=== PATIENT | female | born 1995 | race African-American/Black ===

== ENCOUNTER 2017-03-22 18:22 | Emergency (ER) | payer OTHER ==
[2017-03-22 18:27] VITALS: BP 119/75; BMI 33.6
[2017-03-22 19:58] LABS: BILIRUBIN,URINE NEGATIVE (NEGATIVE); BLOOD/HEMOGLOBIN,URINE NEGATIVE (NEGATIVE); GLUCOSE, URINE NEGATIVE (NEGATIVE); KETONES,URINE 3+ (NEGATIVE); LEUKOCYTE ESTERASE ,URINE 3+ (NEGATIVE); NITRITES,URINE NEGATIVE (NEGATIVE); PROTEIN,URINE NEGATIVE (NEGATIVE); UROBILINOGEN,URINE 1+ (NORMAL)
--- NOTE | 2017-03-22 20:06 | DR.GENAD ---
HPI - PCP Primary Care Physician: DR. DARLING - HPI Comment HPI Comment: HISTORY BELOW. - Complaint/Symptoms Chief Complaint Doctors Comments: ABDOMINAL PAIN, VAGINAL DISCHARGE. GREENISH AND BLOOD STAIN DISCHARGE. ON AND OFF FOR FEW DAYS. NOT FEELING BABY MOVING TODAY. Chief Complaint:: PATIENT STATED THAT FOR THE LAST COUPLE OF DAY SHE HAS BEEN PASSING GREEN DISCHARGE. THIS IS THE 3RD DAY. PATIENT STATED THAT SHE COULD NOT GO SEE HER DOCTOR TODAY DUE TO SHE HAD TO BE IN COURT AND SHE ALSO DENIES HAVING ANY SEX PARTNERS FOR A LONG TIME. - Nurses notes reviewed Nurses Notes Review: Yes - Source History Provided: Patient - Mode of Arrival Mode of Arrival: Ambulatory - Timing Onset of Chief Complaint: 03/19/17 Came on: Suddenly - Duration Duration: Intermittent Duration: Days - Severity Severity: Moderate PMH - PMH Past Medical History: No Past Surgical History: No - Family History History of Family Medical Conditions: Yes Family Medical History: Diabetes Mellitus, Coronary Artery Disease, Hypertension - Social History Does patient currently use any type of tobacco product: No Have you used tobacco products in the last 12 months: No Type of Tobacco Use: None Does any household member use tobacco: No Alcohol Use: None Do you use any recreational Drugs:: No Lives With: Family Lives Where: Home - infectious screening In the last 2 months have you had wt loss of >10#?: NO Have you had fever, night sweats or hemotysis?: No Have you traveled outside the country in the last 6 months?: No Isolation: Standard ROS - Review of Systems Constitutional: No Symptoms Reported Eyes: No Symptoms Reported ENTM: No Symptoms Reported Respiratoy: No Symptoms Reported Cardiovascular: No Symptoms Reported Gastrointestinal/Abdominal: Abdominal Pain Genitourinary: Discharge, Bleeding (VAGINAL BLEEDING.), Other (VAGINAL BLEEDING) Neurological: No Symptoms Reported Musculoskeletal: No Symptoms Reported Integumentary: No Symptoms Reported Hematologic/Lymphatic: No Symptoms Reported Endocrine: No Symptoms Reported All Other Systems: Reviewed and Negative PE - Vital Signs Vitals: Temperature 97.6 F Pulse Rate 95 Respiratory Rate 20 Blood Pressure 119/75 O2 Sat by Pulse Oximetry 100 - General Limitations: No Limitations General Appearance: Alert - Head Head Exam: Normal Inspection - Eyes Eye exam: Normal Appearance - ENT ENT Exam: Normal External Ear Exam External Ear Exam: Normal External Inspection TM/Canal Exam: Bilateral Normal Nose Exam: Normal Nose Exam Mouth Exam: Normal Inspection Throat Exam: Normal Inspection - Neck Neck Exam: Trachea Midline - Chest Chest Inspection: Symmetric Chest Wall Rise - Respiratory Respiratory Exam: Normal Lung Sounds Bilat Respiratory Exam: Bilateral Clear to Auscultation - Cardiovascular Cardiovascular Exam: Regular Rate, Normal Rhythm, Normal Heart Sounds - Abdominal Exam Abdominal Exam: Normal Bowel Sounds, Soft, Tenderness Abdominal Tenderness: RLQ, LLQ, Suprapubic - Extremities Extremities Exam: Normal Inspection - Back Back Exam: Normal Inspection - Neurologic Neurological Exam: Alert, Oriented X3 - Psychiatric Psychiatric Exam: Normal Affect, Anxious - Skin Skin Exam: Normal Color MDM - Additional Information Additional Information Obtained From: Family - Differential Diagnosis Differential Diagnosis: VAGIAL BLEEDING DURING , UTI, PID, THREATENED MISCARRIAGE. Course - Treatment Treatment: SEE ORDERS - Consultation Consultation Comments: DISCUSS PATIENT WITH DR. GRADY. WILL SEE PATIENT IN HIS OFFICE IN AM. FORWARD POSITIVE CULT REPORT TO HIS OFFICE. - Education/Counseling Education/Counseling: Patient, Family, Education Educated On: Needs for Follow Up ROR - Labs Reviewed Laboratory Results Reviewed?: Yes Result Diagrams: 03/22/17 20:47 03/22/17 20:47 Laboratory: 03/22/17 23:25 Vaginal ZAK Preparation - Final WBC 11.7 X10^3/uL (3.6-10.0) H 03/22/17 20:47 RBC 3.59 X10^6/uL (3.5-5.4) 03/22/17 20:47 Hgb 10.4 g/dL (12.0-16.0) L 03/22/17 20:47 Hct 30.6 % (36.0-47.0) L 03/22/17 20:47 MCV 85.2 fL (80.0-100.0) 03/22/17 20:47 MCH 28.9 pg (27.0-34.0) 03/22/17 20:47 MCHC 33.9 g/dL (33.0-35.0) 03/22/17 20:47 RDW 14.4 % (11.6-16.5) 03/22/17 20:47 Plt Count 179 X10^3/uL (150.0-450.0) 03/22/17 20:47 MPV 10.1 fL (7.4-11.0) 03/22/17 20:47 Neut % 68.4 % (42.0-75.0) 03/22/17 20:47 Lymph % 24.3 % (21.0-51.0) 03/22/17 20:47 Mcduffie % 6.1 % (0.0-13.0) 03/22/17 20:47 Eos % 1.0 % (0.9-2.9) 03/22/17 20:47 Baso % 0.2 % (0.2-1.0) 03/22/17 20:47 Neut # 8.0 x10^3/uL (2.2-4.8) H 03/22/17 20:47 Lymph # 2.9 X10^3/uL (1.3-2.9) 03/22/17 20:47 Mcduffie # 0.7 x10^3/uL (0.3-0.8) 03/22/17 20:47 Eos # 0.1 x10^3/uL (0.0-0.2) 03/22/17 20:47 Baso # 0.0 X10^3/uL (0.0-0.1) 03/22/17 20:47 Absolute Nucleated RBC 0.0 /100WBC 03/22/17 20:47 Sodium 139 mmol/L (136-145) 03/22/17 20:47 Corrected Sodium TNP 03/22/17 20:47 Potassium 3.2 mmol/L (3.5-5.1) L 03/22/17 20:47 Chloride 105 mmol/L (98-107) 03/22/17 20:47 Carbon Dioxide 26.1 mmol/L (21-32) 03/22/17 20:47 BUN 4 mg/dL (7-18) L 03/22/17 20:47 Creatinine 0.47 mg/dL (0.55-1.02) L 03/22/17 20:47 Est GFR (MDRD) Af Amer > 60 (>60) 03/22/17 20:47 Est GFR (MDRD) Non-Af > 60 (>60) 03/22/17 20:47 Glucose 86 mg/dL (65-99) 03/22/17 20:47 Calcium 8.3 mg/dL (8.5-10.1) L 03/22/17 20:47 Corrected Calcium 9.3 mg/dL (8.5-10.1) 03/22/17 20:47 Total Bilirubin 0.10 mg/dL (0.2-1.0) L 03/22/17 20:47 AST 11 Units/L (15-37) L 03/22/17 20:47 ALT 12 Units/L (12-78) 03/22/17 20:47 Alkaline Phosphatase 63 Units/L (46-116) 03/22/17 20:47 Total Protein 6.9 g/dL (6.4-8.2) 03/22/17 20:47 Albumin 2.8 g/dL (3.4-5.0) L 03/22/17 20:47 Globulin 4.1 g/dL (2.5-4.5) 03/22/17 20:47 Albumin/Globulin Ratio 0.7 Ratio (1.1-2.1) L 03/22/17 20:47 HCG, Quant 4973 mIU/mL (0-6) H 03/22/17 20:47 Specimen Type Clean catch urine 03/22/17 19:42 Urine Color Dark yellow (YELLOW) 03/22/17 19:42 Urine Appearance Slightly hazy (CLEAR) 03/22/17 19:42 Urine pH 6.0 (5.0 - 8.0) 03/22/17 19:42 Ur Specific [place] 1.015 (1.000-1.030) 03/22/17 19:42 Urine Protein Negative (NEGATIVE) 03/22/17 19:42 Urine Glucose (UA) Negative (NEGATIVE) 03/22/17 19:42 Urine Ketones 3+ (NEGATIVE) 03/22/17 19:42 Urine Occult Blood Negative (NEGATIVE) 03/22/17 19:42 Urine Nitrite Negative (NEGATIVE) 03/22/17 19:42 Urine Bilirubin Negative (NEGATIVE) 03/22/17 19:42 Urine Urobilinogen 1+ (NORMAL) 03/22/17 19:42 Ur Leukocyte Esterase 3+ (NEGATIVE) 03/22/17 19:42 Urine RBC 0-1 /HPF (NEGATIVE) 03/22/17 19:42 Urine WBC 2-3 /HPF (NEGATIVE) 03/22/17 19:42 Ur Squamous Epith Cells Few /HPF (NEGATIVE) 03/22/17 19:42 Amorphous Sediment Trace /HPF (NEGATIVE) 03/22/17 19:42 Urine Bacteria 1+ /HPF (NEGATIVE) 03/22/17 19:42 Urine Mucus Many /HPF (NEGATIVE) 03/22/17 19:42 Ur Culture Indicated? No/not indicated 03/22/17 19:42 Stool Description Fob tube 03/22/17 21:50 Stl Occult Blood (IFOB) Negative (NEGATIVE) 03/22/17 21:50 Ur C. trach DNA (PCR) Not detected (NOT DETECT) 03/22/17 19:42 U N.gonorrhoeae DNA PCR Not detected (NOT DETECT) 03/22/17 19:42 Blood Type A POSITIVE 03/22/17 20:47 - XRAY XRAY Interpreted by: Radiologist XRAY Findings: REPORT DISCUSS WITH PATIENT. - Diagnosis Discharge Problem: Abdominal pain during in second trimester Vaginal discharge during Qualifiers: Trimester: first trimester Qualified Code(s): O26.891 - Other specified related conditions, first trimester; N89.8 - Other specified noninflammatory disorders of vagina Vaginal bleeding during , antepartum Qualifiers: Trimester: first trimester Qualified Code(s): O46.91 - Antepartum hemorrhage, unspecified, first trimester - Discharge Plan Disposition: 01 HOME, SELF-CARE Condition: Stable - Follow ups/Referrals Follow ups/Referrals: RAMÍREZ DARLING [Primary Care Provider] - 03/23/17 - Instructions Instructions: Abdominal Pain During , [id number], Vaginal Bleeding During , Second Trimester Additional Instructions: SEE DR. GRADY THIS AM.
[2017-03-22 20:26] LABS: AMORPHOUS SEDIMENT,UR TRACE /HPF (NEGATIVE); APPEARANCE,URINE SLIGHTLY HAZY (CLEAR); BACTERIA,URINE 1+ /HPF (NEGATIVE); COLOR,URINE DARK YELLOW (YELLOW); MUCUS,URINE MANY /HPF (NEGATIVE); RBC,URINE 0-1 /HPF (NEGATIVE); SQUAMOUS EPITHELIAL CELL,UR FEW /HPF (NEGATIVE)
[2017-03-22 21:02] LABS: BASOPHILS % (AUTO) 0.2 % (0.2-1.0); EOSINOPHILS # (AUTO) 0.1 x10^3/uL (0.0-0.2); HEMATOCRIT 30.6 % (36.0-47.0); HEMOGLOBIN 10.4 g/dL (12.0-16.0); LYMPHOCYTES # (AUTO) 2.9 X10^3/uL (1.3-2.9); LYMPHOCYTES % (AUTO) 24.3 % (21.0-51.0); MEAN CORPUSCULAR HEMOGLOBIN 28.9 pg (27.0-34.0); MEAN CORPUSCULAR HGB CONC 33.9 g/dL (33.0-35.0); MEAN CORPUSCULAR VOLUME 85.2 fL (80.0-100.0); MEAN PLATELET VOLUME 10.1 fL (7.4-11.0); MONOCYTES # (AUTO) 0.7 x10^3/uL (0.3-0.8); MONOCYTES % (AUTO) 6.1 % (0.0-13.0); NEUTROPHILS % (AUTO) 68.4 % (42.0-75.0); PLATELET COUNT 179 X10^3/uL (150.0-450.0); RED BLOOD COUNT 3.59 X10^6/uL (3.5-5.4); RED CELL DISTRIBUTION WIDTH 14.4 % (11.6-16.5); WHITE BLOOD COUNT 11.7 X10^3/uL (3.6-10.0)
[2017-03-22 21:12] LABS: ALANINE AMINOTRANSFERASE 12 Units/L (12-78); ALBUMIN 2.8 g/dL (3.4-5.0); ALKALINE PHOSPHATASE 63 Units/L (46-116); ASPARTATE AMINO TRANSFERASE 11 Units/L (15-37); BLOOD UREA NITROGEN 4 mg/dL (7-18); CALCIUM 8.3 mg/dL (8.5-10.1); CARBON DIOXIDE 26.1 mmol/L (21-32); CHLORIDE 105 mmol/L (98-107); COR CA(FOR HYPOALB) 9.3 mg/dL (8.5-10.1); CREATININE 0.47 mg/dL (0.55-1.02); GLUCOSE 86 mg/dL (65-99); SODIUM 139 mmol/L (136-145); TOTAL PROTEIN 6.9 g/dL (6.4-8.2); eGFR BLACK RACES > 60 (>60); eGFR NON BLACK RACES > 60 (>60)
[2017-03-22 21:34] LABS: HCG,QUANTITATIVE 4973 mIU/mL (0-6)
--- NOTE | 2017-03-22 22:08 | US ---
HISTORY: Green discharge and abdominal pain Study: OB ultrasound greater than 14 weeks Comparison: None Technique: Multiple grayscale and color flow Doppler images of the pelvis were obtained with focused evaluation of the fetus. Findings: A viable single intrauterine is identified with heart tones of 163 beats per minute. A breech presentation is observed with a posterior placenta. Normal amniotic fluid volume is obse rved with an ROSA of ROSA cm. Value Estimated Gestational Age BPD 4.3 19 weeks 0 days HC 16.4 19 weeks 1 day AC 14.2 19 weeks 4 days FL 3.1 19 weeks 3 days IMPRESSION: A viable single intrauterine with an average ultrasound age of 19 weeks 2 days correspond to an estimated date of delivery of 08/14/2017. Reported By:
[2017-03-22] MEDS ORDERED: POTASSIUM CHLORIDE LIQ 20 MEQ UDC PO ONE (22:21)
[2017-03-22] MEDS ORDERED: POTASSIUM CHLORIDE LIQ 20 MEQ UDC ONE (22:49)
[2017-03-23 00:34] LABS: CHLAMYDIA TRACH URINE NOT DETECTED (NOT DETECT)
== END 2017-03-22 23:39 | disposition home or self-care (01) ==
LOC: ER 18:32
DX: O26.891 Other specified pregnancy related conditions, first trimester (principal); N89.8 Other specified noninflammatory disorders of vagina; R10.84 Generalized abdominal pain; O46.91 Antepartum hemorrhage, unspecified, first trimester; Z3A.19 19 weeks gestation of pregnancy
CPT/HCPCS: 36415; 76815; 80053; 81001; 82270; 84702; 85025; 86900; 86901; 87081; 87210; 87491; 87591; 99283; 99284

== ENCOUNTER 2017-07-03 07:50 | Emergency (ER) | payer OTHER ==
[2017-07-03 08:00] VITALS: BP 124/78; BMI 35.4
[2017-07-03] MEDS ORDERED: NS 1000 ML 1,000 ML IV ONE (08:25)
[2017-07-03] MEDS ORDERED: BRETHINE INJ 1 MG VIAL SC ONE ×2 (08:25→08:35)
[2017-07-03] MEDS ORDERED: NS 1000 ML 1,000 ML ONE (08:27)
[2017-07-03 08:31] LABS: BILIRUBIN,URINE NEGATIVE (NEGATIVE); BLOOD/HEMOGLOBIN,URINE NEGATIVE (NEGATIVE); GLUCOSE, URINE NEGATIVE (NEGATIVE); KETONES,URINE NEGATIVE (NEGATIVE); LEUKOCYTE ESTERASE ,URINE 2+ (NEGATIVE); NITRITES,URINE NEGATIVE (NEGATIVE); PROTEIN,URINE NEGATIVE (NEGATIVE); UROBILINOGEN,URINE 1+ (NORMAL)
[2017-07-03 08:40] LABS: AMORPHOUS SEDIMENT,UR TRACE /HPF (NEGATIVE); APPEARANCE,URINE SLIGHTLY HAZY (CLEAR); BACTERIA,URINE NEGATIVE /HPF (NEGATIVE); COLOR,URINE YELLOW (YELLOW); RBC,URINE RARE /HPF (NEGATIVE); SQUAMOUS EPITHELIAL CELL,UR RARE /HPF (NEGATIVE)
== END 2017-07-03 09:37 | disposition short-term general hospital (02) ==
LOC: ER 08:02
DX: O60.03 Preterm labor without delivery, third trimester (principal)
CPT/HCPCS: 81001; 96365; 96372; 96374; 99284; 99285; A4222; J3105

== ENCOUNTER 2017-07-15 22:45 | Emergency (ER) | payer OTHER ==
[2017-07-15 22:58] VITALS: BP 116/81; BMI 35.4
--- NOTE | 2017-07-15 23:19 | DR.PREG ---
HPI - PCP Primary Care Physician: YSABEL - Chief Complaint Chief Complaint:: PT STATES" I CALLED DR. GRADY HE TOLD ME TO COME HERE CAUSE IT IS CLOSER I LIVE IN [place]. EARLIER TONIGHT I LOST SOME FLUID I'M NOT SURE IF ITS MY WATER BUT I BEEN HAVING A SNOTTY LOOKING DISCHARGE SINCE THEN TO. I'M HURTING EVERY 2 MINUTES IN MY STOMACH AND MY BACK" - Source History Provided: Patient - Mode of Arrival Mode of Arrival: Ambulatory - Timing Onset of Chief Complaint: 07/15/17 PMH - PMH Past Medical History: No Past Surgical History: No - Family History History of Family Medical Conditions: Yes Family Medical History: Diabetes Mellitus, Coronary Artery Disease, Hypertension - Social History Do you use any recreational Drugs:: No Lives With: Family Lives Where: Home - infectious screening In the last 2 months have you had wt loss of >10#?: NO Have you had fever, night sweats or hemotysis?: No Have you traveled outside the country in the last 6 months?: No Isolation: Standard PE - Vital Signs Vitals: Temperature 9.6 F Pulse Rate 94 Respiratory Rate 18 Blood Pressure 116/81 O2 Sat by Pulse Oximetry 98 - Discharge Plan Condition: Stable - Follow ups/Referrals Follow ups/Referrals: RAKESH GRADY [Primary Care Provider] - 3 days - Instructions
[2017-07-15 23:41] LABS: BILIRUBIN,URINE NEGATIVE (NEGATIVE); BLOOD/HEMOGLOBIN,URINE NEGATIVE (NEGATIVE); GLUCOSE, URINE NEGATIVE (NEGATIVE); KETONES,URINE NEGATIVE (NEGATIVE); LEUKOCYTE ESTERASE ,URINE 3+ (NEGATIVE); NITRITES,URINE NEGATIVE (NEGATIVE); PROTEIN,URINE NEGATIVE (NEGATIVE); UROBILINOGEN,URINE NORMAL (NORMAL)
[2017-07-15 23:51] LABS: AMNISURE ROM TEST NO MEMBRANES RUPTURE (NO RUPTURE)
[2017-07-15] MEDS ORDERED: NS 1000 ML 1,000 ML IV ONE (23:53)
[2017-07-15] MEDS ORDERED: NS 1000 ML 1,000 ML ONE (23:53)
[2017-07-16] LABS: APPEARANCE,URINE CLEAR (CLEAR); BACTERIA,URINE TRACE /HPF (NEGATIVE); COLOR,URINE YELLOW (YELLOW); RBC,URINE NONE SEEN /HPF (NEGATIVE); SQUAMOUS EPITHELIAL CELL,UR FEW /HPF (NEGATIVE)
== END 2017-07-16 00:35 | disposition home or self-care (01) ==
LOC: ER 22:45 → SUPCPDRO 22:45 → ER 07-16 00:35
DX: O60.03 Preterm labor without delivery, third trimester (principal)
CPT/HCPCS: 81001; 84112; 96365; 96367; 99284; A4222

== ENCOUNTER 2017-07-29 12:05 | Emergency (ER) | payer OTHER ==
[2017-07-29 12:37] VITALS: BP 112/70; BMI 36.6
--- NOTE | 2017-07-30 02:08 | DR.GENAD ---
HPI - PCP Primary Care Physician: YSABEL - Complaint/Symptoms Chief Complaint:: CONTRACTIONS;PELVIC PAIN Self Treatment fo Chief Complaint: PAIN STARTED THIS AM, WORSENED - Source History Provided: Patient - Timing Onset of Chief Complaint: 07/29/17 PMH - PMH Past Medical History: Yes Past Medical History: Hypertension Past Surgical History: No - Family History History of Family Medical Conditions: No Family Medical History: Diabetes Mellitus, Coronary Artery Disease, Hypertension - Social History Does patient currently use any type of tobacco product: No Have you used tobacco products in the last 12 months: No Type of Tobacco Use: None Does any household member use tobacco: No Alcohol Use: None Do you use any recreational Drugs:: No Lives With: Family Lives Where: Home - infectious screening In the last 2 months have you had wt loss of >10#?: NO Have you had fever, night sweats or hemotysis?: No Have you traveled outside the country in the last 6 months?: No Isolation: Standard PE - Vital Signs Vitals: Temperature 98.4 F Pulse Rate 88 Respiratory Rate 20 Blood Pressure 112/70 O2 Sat by Pulse Oximetry 99 - Discharge Plan Disposition: 01 HOME, SELF-CARE Condition: Stable - Follow ups/Referrals Follow ups/Referrals: RAMÍREZ DARLING [Primary Care Provider] - 3 days - Instructions Instructions: [place] Contractions, Third Trimester of , Easy-to -Read Additional Instructions: FOLLOW UP WITH DR. GRADY SCHEDULED. RETURN TO ER FOR BLEEDING OR WATER BREAKS.
== END 2017-07-29 13:00 | disposition home or self-care (01) ==
LOC: ER 12:17
DX: O60.03 Preterm labor without delivery, third trimester (principal)
CPT/HCPCS: 99284

== ENCOUNTER 2017-10-07 00:44 | Emergency (ER) | payer OTHER ==
[2017-10-07 01:02] VITALS: BP 129/74; BMI 35.4
[2017-10-07] MEDS ORDERED: BACTROBAN OINT TOP ONE (01:41)
[2017-10-07] MEDS ORDERED: KEFLEX CAP 500 MG PO ONE ×2 (01:41→01:47)
[2017-10-07] MEDS ORDERED: BACITRACIN ZINC ONE (01:46)
--- NOTE | 2017-10-07 01:46 | DR.GENAD ---
HPI - PCP Primary Care Physician: hany darling - Complaint/Symptoms Chief Complaint Doctors Comments: Patient states she had a tubaligation in [place] recently and it started to drain about five days ago and she has been washing it with full strength hydrogen perioxide about four times daily with a cotton swab and recently it has a scab with an odor. states she called Dr. Gutierrez and he told her to go to the nearest hospital. She denies fever, chills, cold, cough, dysuria or stomach pain. Chief Complaint:: pt c/o tubal x 3 weeks ago-started draining from navel with bad odor x 4 days ago - Nurses notes reviewed Nurses Notes Review: Yes - Source History Provided: Patient - Mode of Arrival Mode of Arrival: Ambulatory - Timing Onset of Chief Complaint: 10/04/17 Came on: Gradually - Duration Duration: Constant How lon Duration: Days - Modifying Factors Worsens:: nothing Improves:: nothing PMH - PMH Past Medical History: Yes Past Medical History: Hypertension Past Surgical History: Yes Past Surgical History Comment: tubal ligation - Family History History of Family Medical Conditions: Yes Family Medical History: Diabetes Mellitus, Coronary Artery Disease, Hypertension - Social History Do you use any recreational Drugs:: No - infectious screening In the last 2 months have you had wt loss of >10#?: NO Have you had fever, night sweats or hemotysis?: No Have you traveled outside the country in the last 6 months?: No Isolation: Standard ROS - Review of Systems Constitutional: No Symptoms Reported. negative: See HPI, Chills, Diaphoresis, Fever, Malaise, Weakness, Irritable, Fatigue, Loss of Appetite, Other Eyes: No Symptoms Reported ENTM: No Symptoms Reported Respiratoy: No Symptoms Reported. negative: See HPI, Productive Cough, Non- Productive Cough, Moist Cough, Dry Cough, Hacking Cough, Barking Cough, Brassy Cough, Orthopnea, Short of Breath, Stridor, Wheezing, Hemoptysis, Other Cardiovascular: No Symptoms Reported Gastrointestinal/Abdominal: No Symptoms Reported, Abdominal Pain (umbilical healing surgical laceration with 3cm scab). negative: See HPI, Constipation, Diarrhea, Nausea, Vomiting, Food Intolerance, Other Genitourinary: No Symptoms Reported Neurological: No Symptoms Reported Musculoskeletal: No Symptoms Reported Integumentary: No Symptoms Reported, Wound (umbilical surgical wound) Hematologic/Lymphatic: No Symptoms Reported Endocrine: No Symptoms Reported Psychiatric: No Symptoms Reported PE - Vital Signs Vitals: Temperature 98.2 F Pulse Rate 90 Respiratory Rate 16 Blood Pressure 129/74 O2 Sat by Pulse Oximetry 99 - General Limitations: No Limitations General Appearance: Alert, In No Apparent Distress - Head Head Exam: Normal Inspection, Atraumatic, Normocephalic - Eyes Eye exam: Normal Appearance, PERRL, EOMI. negative: Scleral Icterus, Conjunctival Injection, Nystagmus, Miosis, Mydrasis, Periorbital Swelling, Periorbital Tenderness, Other - ENT ENT Exam: Normal Exam, Normal Oropharynx, Normal External Ear Exam, TM's Normal Bilaterally External Ear Exam: Normal External Inspection TM/Canal Exam: Bilateral Normal Nose Exam: Normal Nose Exam Mouth Exam: Normal Inspection Throat Exam: Normal Inspection - Neck Neck Exam: Normal Inspection, Full ROM, Trachea Midline - Chest Chest Inspection: Normal Inspection, Symmetric Chest Wall Rise - Respiratory Respiratory Exam: Normal Lung Sounds Bilat Respiratory Exam: Bilateral Clear to Auscultation - Cardiovascular Cardiovascular Exam: Regular Rate, Normal Rhythm, Normal Heart Sounds - Abdominal Exam Abdominal Exam: Normal Inspection, Normal Bowel Sounds, Soft, Tenderness ( umbilicus healing surgical laceration with 3 cm scab with vicryl suture exposed) Abdominal Tenderness: negative: RUQ, RLQ, LUQ, LLQ, Epigastrium, Suprapubic, Diffuse, Mild, Moderate, Severe, Other - Extremities Extremities Exam: Normal Inspection, Full ROM, Normal Capillary Refill. negative: Tenderness, Edema, Joint Swelling, Calf Tenderness, Other - Back Back Exam: Normal Inspection, Full ROM. negative: Tenderness, (R) CVA Tenderness, (L) CVA Tenderness, Muscle Spasm, Paraspinal Tenderness, Vertebral Tenderness, Rashes, (R) Sciatic Notch Tenderness, (L) Sciatic Notch Tendern, (R ) Straight Leg Raise, (L) Straight Leg Raise, Other - Neurologic Neurological Exam: Alert, Oriented X3, CN II-XII Intact, Normal Gait, Reflexes Normal - Psychiatric Psychiatric Exam: Normal Affect, Normal Mood - Skin Skin Exam: Warm, Dry, Intact, Normal Color, Erythema (umbilical 3 cm exudate over surgical scar; no discharge.) - Diagnosis Discharge Problem: Cellulitis of umbilicus - Discharge Plan Disposition: HOME, SELF-CARE Condition: Stable Prescriptions: Cephalexin [KEFLEX CAP 500 MG *] 500 mg PO TID #30 cap Mupirocin Oint [BACTROBAN OINT 2%] 1 applic EXT BID #22 gm - Follow ups/Referrals Follow ups/Referrals: RAMÍREZ DARLING [Primary Care Provider] - 3 days - Instructions Instructions: Cellulitis, Adult, [id number]
== END 2017-10-07 02:01 | disposition home or self-care (01) ==
LOC: ER 00:44
DX: L03.316 Cellulitis of umbilicus (principal)
CPT/HCPCS: 99282